=== PATIENT | female | born 1990 | race Caucasian/White ===

== ENCOUNTER → 2020-12-23 | Outpatient (CLI) | payer OTHER | LOC: COL.RAD 07:05 | DX: G95.9 Disease of spinal cord, unspecified (principal) | CPT/HCPCS: A9585 ==

== ENCOUNTER → 2021-02-28 | Outpatient (CLI) | payer OTHER | LOC: COL.RAD 07:59 | DX: G95.9 Disease of spinal cord, unspecified (principal) | CPT/HCPCS: A9585 ==

== ENCOUNTER 2021-05-23 09:42 | Outpatient (CLI) | payer OTHER ==
[~2021-05-23 09:42] MED LIST: ZOLOFT 100MG100 MG PO
[2021-05-23 09:58] VITALS: BP 125/77; PULSE 72; TEMP 98.1
[2021-05-23 11:33] VITALS: BP 108/68; PULSE 56
[2021-05-23 11:40] VITALS: BP 108/68; PULSE 57
[2021-05-23 11:54] LABS: CSF APPEARANCE CLEAR; CSF COLOR COLORLESS; CSF RBC 9 /mm3 (0-0)
[2021-05-23 12:09] LABS: GLUCOSE,CSF 60 mg/dL (40-70); TOTAL PROTEIN,CSF 24 mg/dL (15-45)
[2021-05-23 12:12] LABS: CSF MONONUCLEAR 100 % (70-100); CSF POLYMORPHONUCLEAR 0 % (0-6)
[2021-05-23 12:15] VITALS: BP 111/58; PULSE 65
[2021-05-23 12:30] VITALS: BP 107/63; PULSE 57
--- NOTE | 2021-05-23 12:40 | NUR ---
DC instructions reviewed with pt, she expresses understanding. Bandaid over LP site remains clean, dry and intact. Pt continues to deny headache or other concerns. Gait steady in room. She has tolerated PO without issue. She is assisted out to mom's car by wheelchair.
[2021-05-28 10:37] LABS: IGG/ALBUMIN SERUM 0.27 (<=0.40)
[2021-05-28 10:46] LABS: ALBUMIN CSF 12.7 mg/dL (<=27.0)
[2021-05-28 11:26] LABS: CSF IGG/ALBUMIN 0.16 (<=0.21); CSF SYNTHESIS RATE 0.08 mg/24 h (<=12); CSF-IGG INDEX 0.59 (<=0.85)
== END 2021-05-23 12:40 | disposition home or self-care (01) ==
LOC: COL.RAD 09:42
PROVIDERS: Psychiatry & Neurology Neurology
DX: R20.2 Paresthesia of skin (principal); G95.9 Disease of spinal cord, unspecified